=== PATIENT | female | born 1955 | race Caucasian/White ===

== ENCOUNTER 2019-02-11 10:54 | Inpatient (IN) | payer OTHER ==
[~2019-02-11] VITALS: Ht 167.6 cm; Wt 66.1 kg
[2019-02-11] MEDS ORDERED: HYDROmorphone 1 MG/ML, 1ML VIAL ONE (11:05)
[2019-02-11] MEDS: HYDROmorphone 1 MG/ML, 1ML INJ IVPush PRN ×2 (11:10→12:10)
[2019-02-11] MEDS ORDERED: PLEASE ENTER ALLERGIES MC SCH (11:30)
[2019-02-11] MEDS ORDERED: SODIUM CHLORIDE FLUSH 10ML SYR IVF ONE (11:30)
[2019-02-11] MEDS ORDERED: LORazepam 2 MG/ML, 1ML ONE (12:07)
[2019-02-11 12:09] LABS: MEAN CORPUSCULAR HEMOGLOBIN 30.8 pg (27.0-34.8); MEAN CORPUSCULAR HGB CONC 33.4 g/dL (32.4-35.8); MEAN CORPUSCULAR VOLUME 92.4 fL (80-100); MEAN PLATELET VOLUME 8.1 fL (7.4-10.4); PLATELET COUNT 307 x10^3/uL (130-400); RED BLOOD COUNT 4.64 x10^6/uL (3.82-5.3); RED CELL DISTRIBUTION WIDTH 13.3 % (9.6-15.2)
[2019-02-11 12:20] LABS: ALBUMIN 3.6 g/dL (3.4-5.0); ANION GAP 7 mmol/L (5-15); CALCIUM 8.4 mg/dL (8.5-10.1); CHLORIDE 112 mmol/L (98-107); CREATININE 0.92 mg/dL (0.55-1.02)
[2019-02-11] MEDS ORDERED: LORazepam 2 MG/ML, 1ML IVPush ONE (12:30)
--- NOTE | 2019-02-11 12:40 | NUR ---
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 10/10 PAIN. GIVEN TWO DOSES OF 20MG OF KETAMINE AND 1MG VERSED PER [employer] BAG BUNDLER. PT MEDICATED AND ASSISTED ONTO BACK FOR TESTING. ATTACHED TO MONITORS. DENIES ANY FURTHER NEEDS OR CONCERNS AT THIS TIME. CALL LIGHT IN REACH.
[2019-02-11 13:13] LABS: BASOPHILS # (AUTO) 0.06 x10^3/uL (0-0.1); BASOPHILS % (AUTO) 1 % (0-1); EOSINOPHILS # (AUTO) 0.04 x10^3/uL (0-0.4); EOSINOPHILS % (AUTO) 0 % (1-7); LYMPHOCYTES # (AUTO) 2.32 x10^3/uL (1-3.4); LYMPHOCYTES % (AUTO) 16 % (22-44); MD SCAN; MONOCYTES # (AUTO) 0.26 x10^3/uL (0.2-0.8); MONOCYTES % (AUTO) 2 % (2-9); NEUTROPHILS # (AUTO) 11.73 x10^3/uL (1.8-6.8); NEUTROPHILS % (AUTO) 81 % (42-75)
--- NOTE | 2019-02-11 13:14 | NUR ---
PT UNDRESSED, ALL JEWELRY REMOVED, PLACED IN URINE SPECIMEN CUP, AND GIVEN TO TO TAKE HOME. NOLEN CATHETER INSERTED WITHOUT ANY ISSUE, PT TOLERATED WELL. GOOD PAIN RELIEF WITH MEDICATION AT THIS TIME. VITALS STABLE. FAMILY AT BEDSIDE. ALL QUESTIONS ANSWERED, DENY ANY FURTHER NEEDS OR CONCERNS. CALL LIGHT IN REACH. AWAITING TRANSPORT TO SURGERY AT THIS TIME.
[2019-02-11 13:20] LABS: MICROSCOPIC NOT IND
[2019-02-11 13:27] LABS: CULTURE INDICATED? NO
--- NOTE | 2019-02-11 13:32 | NUR ---
REPORT TO SURGERY AND TO CHRISTIANO, RECEIVING RN ON MEDICAL FLOOR. FAMILY UPDATED ON PLAN OF CARE. DENY ANY NEEDS OR CONCERNS AT THIS TIME. CALL LIGHT IN REACH.
[2019-02-11] MEDS ORDERED: OXYcodone 5 MG/5 ML ORAL.SOL UDC PO PRN ×2 (14:00→15:30)
[2019-02-11] MEDS ORDERED: PROMETHAZINE 25 MG/ML, 1ML IV PRN (14:00)
[2019-02-11] MEDS ORDERED: HYDROmorphone 2 MG/ML, 1ML IVPush PRN (14:00)
[2019-02-11] MEDS ORDERED: ONDANSETRON 2MG/ML, 2ML IV PRN (14:00)
[2019-02-11] MEDS ORDERED: LABETALOL 5MG/ML, 20ML IV PRN (14:00)
[2019-02-11] MEDS ORDERED: MEPERIDINE/PF 25MG/ML,1ML IVPush PRN (14:00)
[2019-02-11] MEDS ORDERED: ACETAMINOPHEN 325 MG TABLET PO PRN (14:00)
[2019-02-11] MEDS ORDERED: hydrALAzine 20 MG/ML, 1ML IV PRN (14:00)
[2019-02-11] MEDS ORDERED: FENTANYL PF 250 MCG/5ML ONE (14:21)
[2019-02-11] MEDS ORDERED: MIDAZOLAM 1 MG/ML, 2ML ONE (14:21)
--- NOTE | 2019-02-11 14:32 | NUR ---
PT TO OR.
[2019-02-11] MEDS ORDERED: ROCURONIUM 10 MG/ML,10ML ONE (15:02)
[2019-02-11] MEDS ORDERED: SUCCINYLCHOLINE 20 MG/ML, 10ML ONE (15:10)
[2019-02-11] MEDS ORDERED: CEFAZOLIN 1,000 MG ONE (15:10)
[2019-02-11] MEDS ORDERED: PROPOFOL 10 MG/ML, 20ML ONE (15:10)
[2019-02-11] MEDS ORDERED: ONDANSETRON 2MG/ML, 2ML ONE (15:10)
[2019-02-11] MEDS ORDERED: DEXAMETHASONE 4 MG/ML, 1ML ONE (15:10)
[2019-02-11] MEDS ORDERED: KETOROLAC 30 MG/1 ML ONE (15:16)
[2019-02-11] MEDS ORDERED: FENTANYL PF 100 MCG/2ML ONE (15:22)
[2019-02-11] MEDS ORDERED: OXYcodone 5 MG/5 ML ORAL.SOL UDC ONE (15:22)
[2019-02-11] MEDS ORDERED: ACETAMINOPHEN 650 MG/20.3 ML UDC ONE (15:42)
[2019-02-11] MEDS: FENTANYL PF 100 MCG/2ML IV PRN ×2 (15:56→16:10)
[2019-02-11 16:50] VITALS: BP 115/78
[2019-02-11 17:39] VITALS: BP 115/78
[2019-02-11] MEDS ORDERED: HYDROmorphone 1 MG/ML, 1ML INJ IV PRN (18:00)
[2019-02-11] MEDS ORDERED: ONDANSETRON 4 MG TABLET PO PRN (18:00)
[2019-02-11] MEDS ORDERED: OXYcodone IR 5MG TABLET PO PRN (18:00)
[2019-02-11 20:42] VITALS: BP 96/62
[2019-02-11] MEDS: DOCUSATE 100 MG CAPSULE PO SCH (20:52)
[2019-02-11] MEDS: CEFAZOLIN 2,000 MG in SODIUM CHLORIDE 0.9% 50 ML IV SCH (23:28)
[2019-02-11] MEDS: KETOROLAC 30 MG/1 ML IV SCH (23:29)
[2019-02-11] MEDS: ACETAMINOPHEN 325 MG TABLET PO SCH (23:29)
[2019-02-11 23:45] VITALS: BP 98/60
[2019-02-12 04:17] VITALS: BP 96/57
[2019-02-12] MEDS: KETOROLAC 30 MG/1 ML IV SCH ×2 (06:41→15:37)
[2019-02-12] MEDS: ACETAMINOPHEN 325 MG TABLET PO SCH ×2 (06:41→15:32)
[2019-02-12] MEDS: ENOXAPARIN 40 MG/0.4 ML SQ SCH (06:41)
[2019-02-12] MEDS: CEFAZOLIN 2,000 MG in SODIUM CHLORIDE 0.9% 50 ML IV SCH ×2 (07:12→08:40)
[2019-02-12] MEDS: DOCUSATE 100 MG CAPSULE PO SCH ×2 (08:39→20:13)
[2019-02-12 08:45] VITALS: BP 94/55
[2019-02-12 15:39] VITALS: BP 95/60
[2019-02-12 18:56] VITALS: BP 92/55
[2019-02-12] MEDS ORDERED: ACETAMINOPHEN 500 MG TABLET PO PRN (21:00)
[2019-02-13 01:10] VITALS: BP 104/65
[2019-02-13] MEDS: ENOXAPARIN 40 MG/0.4 ML SQ SCH (06:34)
[2019-02-13 07:58] VITALS: BP 87/49
[2019-02-13] MEDS: DOCUSATE 100 MG CAPSULE PO SCH (09:06)
[2019-02-13 13:49] VITALS: BP 112/69
[2019-02-13] MEDS ORDERED: ASPI81TA45 PO (14:19)
[2019-02-13] MEDS ORDERED: HYDR-3240 PO (14:19)
== END 2019-02-13 15:00 | disposition home or self-care (01) | DRG 480 ==
LOC: ED 11:41 → EDIP 12:39 → 4NE 16:50 → DCLOUNGE 02-13 14:54
PROVIDERS: ADMIT Orthopaedic Surgery; ATTEND Orthopaedic Surgery
PROC: 0QS736Z Reposition Left Upper Femur with Intramedullary Internal Fixation Device, Percutaneous Approach (ICD-10-PCS; principal; 2019-02-11 14:00)
DX: S72.142A Displaced intertrochanteric fracture of left femur, initial encounter for closed fracture (principal); R53.2 Functional quadriplegia; W01.0XXA Fall on same level from slipping, tripping and stumbling without subsequent striking against object, initial encounter; F17.200 Nicotine dependence, unspecified, uncomplicated; Y93.89 Activity, other specified; Y92.89 Other specified places as the place of occurrence of the external cause; Y99.8 Other external cause status; Z79.899 Other long term (current) drug therapy
CPT/HCPCS: 36415; 51702; 71045; 76000; 80048; 81003; 82040; 85025; 93005; 96374; 96375; 99285; C1713; G0378; J0690; J1100; J1170; J1650; J1885; J2250; J2405; J2704; J3010; J0330; J2060